=== PATIENT | male | born 1940 | race Caucasian/White ===

== ENCOUNTER 2017-02-17 14:02 | Emergency (ER) | payer MEDICARE ==
[2017-02-17 16:07] LABS: Bacteria/HPF Rare-Few HPF (None Seen); RBC/HPF GREATER THAN 50-TNTC HPF (0-3); Squamous Epithelial None Seen HPF (0-3); WBC/HPF None Seen HPF (0-3)
== END 2017-02-17 16:42 | disposition home or self-care (01) ==
LOC: SCSER 14:02
DX: R33.9 Retention of urine, unspecified (principal); R31.9 Hematuria, unspecified; Z79.899 Other long term (current) drug therapy
CPT/HCPCS: 51702; 81001

== ENCOUNTER 2017-05-08 12:41 | Outpatient (CLI) | payer MEDICARE ==
--- NOTE | 2017-05-08 13:25 | ULT ---
BILATERAL RENAL ULTRASOUND: Date: 05/08/17 INDICATION: Elevated renal function levels. Prior right nephrectomy. FINDINGS: There is mild prominence of the left renal pelvis. Slight heterogeneity of the renal parenchyma is no nspecific. The demonstrated renal length is 13.7 cm. Imaged urinary bladder is decompressed. IMPRESSION: 1. Mild prominence of the left renal pelvis without overt hydronephrosis. 2. Mild nonspecific heterogeneity of the left renal parenchyma. 3. Compensatory hypertrophy of the left kidney, status post right nephrectomy. POS: KEVON
== END 2017-05-08 12:42 | disposition home or self-care (01) ==
LOC: RAD 12:41
PROVIDERS: ATTEND Internal Medicine Hematology & Oncology
DX: C64.1 Malignant neoplasm of right kidney, except renal pelvis (principal); Z85.528 Personal history of other malignant neoplasm of kidney; N28.81 Hypertrophy of kidney; Z90.5 Acquired absence of kidney
CPT/HCPCS: 76775; 80053; 82248; 83615; 84100; 84550

== ENCOUNTER 2017-05-09 11:55 | Inpatient (IN) | payer MEDICARE ==
[2017-05-09 12:42] VITALS: BMI 21.9
[2017-05-09 13:28] LABS: #Lymphocytes 0.5 thou/uL (1.20-3.40); #Monocytes 0.1 thou/uL (0.11-0.59); %Basophils 0.1 % (0.0-1.0); %Eosinophils 0.1 % (0.0-10.0); %Lymphocytes 4.9 % (21.0-51.0); %Monocytes 0.9 % (0.0-10.0); Hemoglobin 8.9 g/dL (14.0-18.0); Mean Corpuscular HGB CONC 32.3 g/dL (32.0-36.0); Mean Corpuscular Hemoglobin 29.3 pg (27.0-31.0); Mean Corpuscular Volume 90.6 fl (80.0-94.0); Mean Platelet Volume 7.9 fL (7.4-10.4); Platelet Count 458 thou/uL (130-400); RBC Distribution Width 13.5 % (11.5-14.5); Red Blood Cell (RBC) Count 3.05 mill/uL (4.70-6.10); White Blood Cell (WBC) Count 9.5 thou/uL (4.8-10.8)
[2017-05-09 13:38] LABS: ALT (SGPT) 11 U/L (8-55); AST (SGOT) 12 U/L (5-34); Albumin 2.9 g/dL (3.4-4.8); Alkaline Phosphatase 91 U/L (40-150); Anion Gap 23 mmol/L (10-20); BUN (Urea Nitrogen) 125 mg/dL (8.4-25.7); Bilirubin, Total 0.3 mg/dL (0.2-1.2); Calc. Creatinine Clearance 6 mL/min (70-130); Calcium 9.3 mg/dL (7.8-10.44); Carbon Dioxide 19 mmol/L (23-31); Chloride 98 mmol/L (98-107); Estimated GFR-MDRD 4; Globulin 3.3 g/dL (2.4-3.5); Glucose 202 mg/dL (83-110); Potassium 5.9 mmol/L (3.5-5.1); Protein, Total 6.2 g/dL (5.8-8.1); Sodium 134 mmol/L (136-145)
[2017-05-09] MEDS ORDERED: FLU VACC TS2017-18 (>65YR) 0.5 ML SYRINGE IM ONE (13:45)
--- NOTE | 2017-05-09 14:13 | HP ---
PRIMARY CARE PROVIDER: Dr. Tello, direct admitted by Dr. Contreras Castillo. HISTORY OF PRESENT ILLNESS: Patient with profound listlessness and fatigue for the past several week s to 2 months, on Opdivo treatment for recurrent renal cell CA, found to have a creatinine of 12 yest erday. He was admitted to the hospital. He continues to make urine. There is no blood in his urine . No pain on urination. PAST MEDICAL HISTORY: Right nephrectomy for renal cell CA 16 years ago, recurred about 2 years ago i n his liver. He had extra additional chemotherapy for 3 months that did not work, he was changed to immunotherapy with Opdivo and has been on that for over a year and a half. He has a history of pepti c ulcer disease diagnosed 2-3 months ago at the [facility]. He has a history of gout, hypothyroidism, past medical history of hypertension which has apparently resolved, history of dyslipidemia. PAST SURGICAL HISTORY: In addition, he has had a prostate surgery removal 2-3 months ago that involv ed 3 separate procedures, but was apparently not a radical prostatectomy. CURRENT MEDICATIONS: Opdivo IV on a regular basis, allopurinol 300 mg a day, potassium 8 mEq a day, Lasix 40 mg a day, doxazosin 4 mg a day, levothyroxine 50 mcg a day, omeprazole 40 mg a day. ALLERGIES: None. FAMILY HISTORY: He has a brother with hypertension and heart disease. Mother had a stroke. Father had coronary artery disease, CHF. SOCIAL HISTORY: He is , at bedside. They both agree he is not to be resuscitated. No t obacco, no alcohol. REVIEW OF SYSTEMS: General: No fever, sweats or chills. No true dizziness, no fainting. Eyes: No double vision, blurred vision, flashing lights. ENT: No ear pain or drainage. No nasal bleeding o r trouble swallowing. Cardiac: No chest pain, orthopnea or paroxysmal nocturnal dyspnea. Respirato ry: He has a dry cough at times. No asthma or wheezing. Gastrointestinal: He has occasional diarr hea, no blood in his stools. No melena. No constipation, no abdominal pain, nausea or vomiting. Ge nitourinary: He still makes urine without difficulty. He has no blood in his urine. Musculoskeleta l: No pain or swelling in his arms or legs. Neurologic: No strokes, seizures or focal weakness. P sychiatric: No anxiety or depression. Skin: Bruises easily on his arms. Heme/Lymph: No tender or swollen lymph nodes in axilla, inguinal, or cervical area. PHYSICAL EXAMINATION: GENERAL: He is an alert, pleasant, cooperative gentleman. VITAL SIGNS: His pulse was 46, respirations 18, O2 sat 94, temperature 98, blood pressure 101/55. HEENT: Pupils equal, round, and reactive to light. Extraocular movements are intact. Sclerae white . Tympanic membranes are clear. Nose is clear. Oral mucous membranes are wet. NECK: Supple, without jugular venous distention, adenopathy or thyromegaly. CHEST: Clear to auscultation and percussion. HEART: Had a regular rate and rhythm. First and second heart sounds are clear. There are no murmur s or gallops. Pulse was slow in the 50s range. ABDOMEN: Soft, bowel sounds are normal. There is no palpable hepatosplenomegaly, mass. Bowel sound s are present. There are no bruits. EXTREMITIES: Reveal no cyanosis, clubbing or edema. PULSES: Carotid, radial, femoral, and dorsalis pedis pulses intact. SKIN: Warm and dry without bruises or rash. HEME/LYMPH: Reveal no tender or swollen lymph nodes in axilla, inguinal, or cervical region. NEUROLOGICAL: Cranial nerves II through XII are intact. Deep tendon reflexes symmetric. LABORATORY STUDIES: There are no presented studies. ADMITTING DIAGNOSES: 1. Acute renal failure with a creatinine of 12. 2. Metastatic renal cell carcinoma on Opdivo therapy. 3. Hypothyroidism. 4. Recent history of peptic ulcer disease. 5. Hypertension. 6. Bradycardia. 7. Dyslipidemia. PLAN: 1. Chest x-ray, EKG, CBC and comp metabolic profile have been ordered and will be reviewed when avai lable. 2. High dose oral steroids, 60 mg prednisone twice a day. 3. Selected home medicines. Hold allopurinol, Lasix, and potassium at this time. 4. Dr. Hicks has been called for Nephrology consultation.
[2017-05-09] MEDS: Sodium Chloride 0.9% 1,000 ML IV SCH ×2 (14:45→23:44)
--- NOTE | 2017-05-09 15:14 | RAD ---
TWO VIEWS CHEST: Date: 05-09-17 Provided Clinical History: Metastatic cancer. FINDINGS: No comparisons. Cardiac and mediastinal silhouette is within normal limits. Atherosclerosis involves the thoracic aorta. No focal consolidation, pleural fluid, or pneumothorax apparent. Degenerative dis c changes are seen involving the thoracic spine. IMPRESSION: No evidence for an acute cardiopulmonary process. POS: PAM
[2017-05-09 15:21] LABS: Bilirubin Negative (Negative); Blood, Urine Small (Negative); Clarity CLOUDY (Clear); Glucose, Urine (Dipstick) Negative (Negative); Leukocyte Large (Negative); Nitrite Negative (Negative); Protein, Urine (Dipstick) 30 mg/dL (Neg-Trace); Specific Gravity, Urine 1.019 (1.002-1.036); Urobilinogen 0.2 mg/dL (0.2-1.0); pH, Urine 5.5 (5.0-9.0)
[2017-05-09 15:23] LABS: Bacteria/HPF 4+ HPF (None Seen); RBC/HPF 0-3 HPF (0-3); Squamous Epithelial 0-3 HPF (0-3)
[2017-05-09 15:25] LABS: Pathc Cast-AUWi Flag 9.62 (0-2.49)
[2017-05-09 15:35] LABS: Hyaline Casts/LPF 0-3 HYALINE CAST LPF (0-3 Hyaline); Other Casts/LPF None Seen LPF (0-3 Hyaline)
[2017-05-09 15:39] LABS: Creatinine, Urine 80.43 mg/dL (63-166)
[2017-05-09] MEDS: predniSONE 20 MG TAB PO SCH (20:43)
[2017-05-09] MEDS: Doxazosin Mesylate 4 MG TAB PO SCH (20:44)
--- NOTE | 2017-05-09 22:36 | CON ---
Date of consultation: 05/09/2017 HISTORY OF PRESENT ILLNESS: Mr. Hinds is a 77-year-old white male who was admitted for an acute ki dney injury. His initial creatinine was noted around 13 mg%. We are now being consulted for his acu te kidney injury. Please note the only nephrotoxic drugs that may be playing a factor with this marielle ent is he was on Opdivo IV every 2 weeks for the last several months. Please note that at home he wa s also on a diuretic. We are being consulted for his acute kidney injury. REVIEW OF SYSTEMS: No chest pain, decreased appetite, decreased energy level. No nausea, no vomitin g, no gross hematuria, no dysuria, no urinary frequency. No diarrhea. No hematochezia, no melena, n o hematemesis, no headache, no new skin rash, no joint pains, no headache, no diplopia, no sore throa t, no earache, no shortness of breath, no fever or chills. HOME MEDICATIONS: Included Opdivo IV q.2 weeks times several months, allopurinol 300 mg once a day, KCl 8 mEq once a day, Lasix 40 mg daily, doxazosin 4 mg once a day, levothyroxine 50 mcg q. day, ome prazole 40 mg tab once daily. PAST MEDICAL HISTORY: 1. Renal cancer - first diagnosed 16 years ago. 2. Metastatic renal cancer - - currently on IV chemotherapy. 3. He has a history of GERD. 4. Hypothyroidism. PAST SURGICAL HISTORY: Includes 1. Prostate surgery, status post ? prostate biopsy. 2. Status post colonoscopy. 3. Status post right nephrectomy, status post liver biopsy. SOCIAL HISTORY: The patient lives in [place], lives with his , originally from [facility], 2 children. No history of smoking. No alcohol intake. 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 Education, high school. Status post blood transfusion. No IV drug abuse. ALLERGIES: None. TRAUMA: None. IMMUNIZATIONS: Not up to date. HOSPITALIZATIONS: Please see past medical history. FAMILY HISTORY: No family history of ESRD. PHYSICAL EXAMINATION: VITAL SIGNS: Blood pressure is 101/55, heart rate 46, respiratory rate 18, temperature 98, pulse ox 94%. GENERAL: Awake, alert, supine, comfortable, not in distress. SKIN: Decreased turgor. HEENT: He has pinkish, slightly pale conjunctivae, anicteric sclerae. NECK: No neck mass, no carotid bruits, no JVD. CHEST: No deformities. LUNGS: Clear breath sounds. No wheezing, no crackles heard. HEART: Normal sinus rhythm. No murmur, no gallops, no rubs. ABDOMEN: Globular, soft, nontender, no masses. EXTREMITIES: No edema, no deformities. NEUROLOGIC: Awake, oriented to 3 spheres. Moving all extremities. No tremors, no asterixis, no latha lidya. LABORATORY DATA AND X-RAY FINDINGS: 1. Laboratories of 05/09/2017, chest x-ray - no CHF, no infiltrates. 2. Sodium 134, potassium 5.9, chloride 98, carbon dioxide 19, BUN 125, creatinine 12.13, glucose 202 , calcium 9.3, AST 12, ALT 11, albumin 2.9. 3. White count 9.5, hemoglobin 8.9. 4. Urinalysis, specific gravity 1.019, protein is 30, rbc's 0-3, wbc's greater than 50, urine bacter ia 4+, urine leukocyte esterase large. No white cell casts, no red cell casts. 5. Renal ultrasound reported to show no evidence of hydronephrosis, it is slightly enlarged. ASSESSMENT AND PLAN: 1. Acute kidney injury - consider hemodynamically mediated renal dysfunction - prerenal azotemia - e mpiric volume repletion. I have increased normal saline from 100 mL per hour to 125 mL per hour. Th e other possibilities he may have an immune-mediated nephritis related to the Opdivo. The only way w e can confirm this is a renal biopsy. However, I am hesitant to proceed with a renal biopsy with dre eone with a solitary kidney. The urinalysis does not suggest an interstitial nephritis and/or glomer ulonephritis from his medication since I look at it as relatively benign. He does have white cells, but he does have bacteria and may suggest he may have UTI. If he is asymptomatic with a UTI, I will simply observe this. The next 24 hours will tell us if he is simply has a hemodynamically mediated r enal dysfunction, if it will improve his volume repletion. I did tell the patient that if needed, we may need to consider dialytic intervention. They are aware about this. 2. Renal cancer with mets - the patient is status post nephrectomy. Being managed by oncologist for his metastatic renal cancer. According to me, it has relatively been stable. 3. Continue current management. No changes will be made with his medication at the present time. I have ordered urine chemistries with this patient. We will recheck a base met CBC in the a.m.
[2017-05-10 05:43] LABS: #Lymphocytes 0.4 thou/uL (1.20-3.40); #Monocytes 0.2 thou/uL (0.11-0.59); #Neutrophils 11.6 thou/uL (1.40-6.50); %Eosinophils 0.1 % (0.0-10.0); %Lymphocytes 3.5 % (21.0-51.0); %Monocytes 1.5 % (0.0-10.0); %Neutrophils 94.8 % (42.0-75.0); Hemoglobin 8.7 g/dL (14.0-18.0); Mean Corpuscular HGB CONC 31.6 g/dL (32.0-36.0); Mean Corpuscular Hemoglobin 28.6 pg (27.0-31.0); Mean Corpuscular Volume 90.3 fl (80.0-94.0); Mean Platelet Volume 7.8 fL (7.4-10.4); Platelet Count 401 thou/uL (130-400); RBC Distribution Width 13.6 % (11.5-14.5); Red Blood Cell (RBC) Count 3.03 mill/uL (4.70-6.10); White Blood Cell (WBC) Count 12.2 thou/uL (4.8-10.8)
[2017-05-10] MEDS ORDERED: Levothyroxine Sodium 125 MCG TAB PO SCH (06:00)
[2017-05-10 06:01] LABS: Anion Gap 21 mmol/L (10-20); BUN (Urea Nitrogen) 119 mg/dL (8.4-25.7); Calc. Creatinine Clearance 6 mL/min (70-130); Calcium 8.6 mg/dL (7.8-10.44); Carbon Dioxide 20 mmol/L (23-31); Chloride 102 mmol/L (98-107); Estimated GFR-MDRD 5; Glucose 123 mg/dL (83-110); Potassium 4.5 mmol/L (3.5-5.1); Sodium 138 mmol/L (136-145)
--- NOTE | 2017-05-10 07:33 | EKG ---
Test Reason : Blood Pressure : / mmHG Vent. Rate : 054 BPM Atrial Rate : 054 BPM P-R Int : 190 ms QRS Dur : 104 ms QT Int : 450 ms P-R-T Axes : 080 -05 073 degrees QTc Int : 426 ms Sinus bradycardia Cannot rule out Anterior infarct , age undetermined Nonspecific ST-T changes Abnormal ECG When compared with ECG of 16-MAR-2012 23:18, Minimal criteria for Anterior infarct are now Present Confirmed by DR. Beth SOLER ([id number]) on 05/10/2017 7:33:25 AM Referred By: CAMI Confirmed By:DR. Beth SOLER
[2017-05-10] MEDS: Levothyroxine Sodium 50 MCG TAB PO SCH (07:36)
--- NOTE | 2017-05-10 08:14 | PRG ---
DATE OF SERVICE: 05/10/2017 SUBJECTIVE: Mr. Hinds is a 77-year-old white male with known history of metastatic renal cancer, o n chemotherapy - Opdivo. He was admitted for his acute kidney injury. We were currently doing IV hy dration and hope that he will have some improvement with the renal function. In addition, he has bee n started by his oncologist on prednisone at 60 mg p.o. b.i.d. for the possibility that this may be a n acute nephritis secondary to Opdivo. Currently, he is asymptomatic. He denies any chest pain, no shortness of breath. The patient contin ues to diurese. He is tolerating the IV fluid. He was noted to be mildly hyperkalemic yesterday and Kayexalate was given which significantly improved the potassium. OBJECTIVE: VITAL SIGNS: Blood pressure is 130/58, heart rate 56, respiratory rate 12, temperature 97.4, pulse o x 96%. GENERAL: Noted to be awake, supine, comfortable, not in distress. SKIN: Adequate turgor. HEENT: Slightly pale conjunctivae, anicteric sclerae. NECK: No neck mass, no carotid bruits, no JVD. CHEST: No deformities. LUNGS: Decreased breath sounds. HEART: Normal sinus rhythm. No murmur, no gallops, no rubs. ABDOMEN: Globular, soft, nontender, no masses. EXTREMITIES: No edema or deformities. MEDICATIONS: Medications of 05/10/2017 was reviewed. LABORATORY DATA: Laboratories of 05/10/2017; sodium 128, potassium 4.5, chloride 102, carbon dioxide 20, BUN 119, creatinine 11.08, glucose 123, calcium 8.6. White count 12.2, hemoglobin 8.7, and tonia tocrit 27.3. Urine sodium 29, urine creatinine 80.43. ASSESSMENT AND PLAN: 1. Acute kidney injury - this could be secondary from nephritis from Opdivo versus a simple hemodyna mically mediated renal dysfunction. Having said this, he is being treated for possible nephritis - c urrently on prednisone 60 mg p.o. b.i.d. In addition, he is getting IV hydration of normal saline at 125 mL per hour. I will continue this conservative management. Please note that the renal biopsy w ith this patient is a relative contraindication due to the fact that the patient has a solitary kidne y. Renal ultrasound did not show any obstruction. The urine sediment was equivocal. There is no ov ert acute tubular necrosis. There is no overt glomerulonephritis in the absence of hematuria or red cell casts. He does have some white cells. I doubt he has a systemic acute interstitial nephritis a nd the possibility of clinical manifestations. For the moment, continue to have conservative managem ent and there is no indication for any dialytic intervention. We will do dialysis that has been ment ioned to the patient. He voices that and he would like to avoid it if possible. No new changes with this management. Continue supportive care. 2. Metastatic renal cancer. Supportive care. Hematology/Oncology following. 3. We will check base met and CBC in a.m. 4. Hyperkalemia - resolved with sodium Kayexalate.
[2017-05-10] MEDS ORDERED: Non-Formulary Item 1 EACH (Omeprazole [Omeprazole] 40 MG) PO SCH (09:00)
[2017-05-10] MEDS: predniSONE 20 MG TAB PO SCH ×2 (09:42→21:39)
[2017-05-10] MEDS: Sodium Chloride 0.9% 1,000 ML IV SCH ×2 (09:44→18:11)
--- NOTE | 2017-05-10 12:16 | PDOC.PN ---
- Subjective Encounter Start Date: 05/10/17 Encounter Start Time: 12:14 Subjective: no dysuria, hematria, good UO - Objective Resuscitation Status: Resuscitation Status DNR:Do Not Resuscitate MAR Reviewed: Yes Vital Signs & Weight: Vital Signs (12 hours) Temp Pulse Resp BP Pulse Ox 05/10/17 08:10 97.2 F L 50 L 16 98 05/10/17 07:20 97.2 F L 50 L 16 121/60 98 05/10/17 04:00 97.4 F L 56 L 12 130/58 L 96 Weight Weight 175 lb I&O: 05/09/17 05/10/17 05/11/17 06:59 06:59 06:59 Intake Total 1488 Output Total 260 300 Balance 1228 -300 Result Diagrams: 05/10/17 05:14 05/10/17 05:14 Phys Exam - Physical Examination Constitutional: NAD Neck: no JVD Respiratory: clear to auscultation bilateral Cardiovascular: RRR, no significant murmur Gastrointestinal: soft, non-tender, positive bowel sounds Musculoskeletal: no edema Dx/Plan (1) Acute renal failure Status: Acute Qualifiers: Acute renal failure type: unspecified Qualified Code(s): N17.9 - Acute kidney failure, unspecified (2) Metastatic renal cell carcinoma to liver Code(s): C78.7 - SECONDARY MALIG NEOPLASM OF LIVER AND INTRAHEPATIC BILE DUCT; C64.9 - MALIGNANT NEOPLASM OF UNSP KIDNEY, EXCEPT RENAL PELVIS Status: Chronic (3) HTN (hypertension) Code(s): I10 - ESSENTIAL (PRIMARY) HYPERTENSION Status: Chronic Qualifiers: Hypertension type: essential hypertension Qualified Code(s): I10 - Essential (primary) hypertension (4) Hypothyroid Code(s): E03.9 - HYPOTHYROIDISM, UNSPECIFIED Status: Chronic - Plan cont po steroids, cont iv fluids, serial BMP * .
[2017-05-10] MEDS: Doxazosin Mesylate 4 MG TAB PO SCH (21:39)
--- NOTE | 2017-05-11 00:06 | CON ---
DATE OF CONSULTATION: 05/09/2017 REASON FOR CONSULTATION: Metastatic renal cell carcinoma and acute renal failure. HISTORY OF PRESENT ILLNESS: The patient is a 77-year-old man with a known history of metastatic jonny l cell carcinoma, who underwent right nephrectomy in 2002 for renal cell carcinoma confined to the ki dney. In March 2015, he was found to have multiple small pulmonary nodules and a very large mass involving the inferior portion of the liver. A biopsy confirmed metastatic kidney carcinoma. He was placed on Sutent initially, but progressed in 08/2015. Immunotherapy consisting of Opdivo was initi ated in 08/2015 and he has had stable disease for the past 18 months. His course has been complicate d by intermittent gouty arthritis for which he is maintained on allopurinol with good success. He al so had an episode of melena in December 2015 and 2016 and an upper gastrointestinal endoscopy did reveal benign gastric ulcers, which have healed. He developed an episode of urinary retention i n 02/2017 and did undergo a palliative transurethral laser resection of the prostate performed by Dr. Gilbert at the [facility]. He has done well since, until the last few weeks w hen he developed progressive fatigue. A creatinine was 1.6 in the office 2 weeks prior to admission. On the day of admission, he presented to the office for his typical Opdivo treatment. Because he h ad progressive fatigue, additional chemistries were obtained and creatinine surprisingly was 12. The re was no hyperkalemia or acidosis of significance. He is urinating normally. My concern was immuno therapy related nephritis as there appeared to be no other significant explanation. Oral steroids we re initiated and immediate hospitalization was recommended, this was late in the afternoon and, there fore, the patient preferred to return the following morning for admission. ALLERGIES: None. MEDICATIONS: Allopurinol 300 daily, doxazosin 4 mg daily, Lasix 40 daily as needed, and levothyroxin e 125 mcg daily. MEDICAL ILLNESSES: There is a history of hypertension, osteoarthritis, and gouty arthritis. There i s no history of known coronary artery disease. SURGERY: The patient underwent a right nephrectomy in 2002, arthroscopic knee surgery in 2009, catar act surgery 2012, and prostate surgery for benign obstruction in 02/2017. FAMILY HISTORY: The patient's father had colon cancer. There is no other significant family history . SOCIAL HISTORY: The patient is and has 2 children. He lives with his . He is a nonsmok er and does not drink alcohol. 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 REVIEW OF SYSTEMS: Except as mentioned in the history of present illness, he denies significant card iopulmonary, GI, , musculoskeletal, or neurological complaints. PHYSICAL EXAMINATION: VITAL SIGNS: Weight 183 pounds, height 73 inches. Pulse 63 and regular, blood pressure 111/58. GENERAL: The patient is a well-developed and well-nourished man in no acute distress. He is alert, oriented, and cooperative. HEENT: The extraocular movements are intact and the pupils are equal, round, and reactive to light. NECK: Supple. LUNGS: Clear. CARDIOVASCULAR: Regular rate and rhythm without murmur, rub, gallop or click. ABDOMEN: No tenderness, organomegaly, masses, bruits or ascites. EXTREMITIES: No clubbing, cyanosis or edema. SKIN: Normal. LYMPH: No adenopathy. MUSCULOSKELETAL: No active arthritis. NEUROLOGIC: No focal findings and the cranial nerves II-XII are grossly intact. LABORATORY: Chemistries on admission show sodium 134, potassium 5.9, chloride 98, carbon dioxide 19. The creatinine is 12.13 and BUN 125. A random blood sugar is 202. The calcium is 9.3 with uric ac id of 4.3. Liver function studies are normal. The albumin is 2.9. IMAGING: The patient underwent an ultrasound of the kidneys, which showed no evidence of obstruction . IMPRESSION: 1. Metastatic renal cell carcinoma, stable on immunotherapy consisting of Opdivo. 2. Acute renal failure; my primary concern is Opdivo related nephritis with possible contribution of volume depletion. RECOMMENDATIONS: I discussed the findings at length with the patient. He will have fluid administer ed and allopurinol and Opdivo will be held. Prednisone has been initiated the night prior to admissi on at a dose of 60 mg b.i.d. which is 1-2 mg/kg. Nephrology consultation will be obtained.
[2017-05-11] MEDS: Sodium Chloride 0.9% 1,000 ML IV SCH ×3 (01:30→19:44)
[2017-05-11 05:57] LABS: #Lymphocytes 0.4 thou/uL (1.20-3.40); #Monocytes 0.2 thou/uL (0.11-0.59); #Neutrophils 8.4 thou/uL (1.40-6.50); %Eosinophils 0.1 % (0.0-10.0); %Lymphocytes 4.1 % (21.0-51.0); %Monocytes 2.2 % (0.0-10.0); %Neutrophils 93.6 % (42.0-75.0); Hemoglobin 8.8 g/dL (14.0-18.0); Mean Corpuscular HGB CONC 31.8 g/dL (32.0-36.0); Mean Corpuscular Hemoglobin 28.7 pg (27.0-31.0); Mean Corpuscular Volume 90.3 fl (80.0-94.0); Mean Platelet Volume 8.3 fL (7.4-10.4); Platelet Count 390 thou/uL (130-400); RBC Distribution Width 13.6 % (11.5-14.5); Red Blood Cell (RBC) Count 3.07 mill/uL (4.70-6.10)
[2017-05-11 06:05] LABS: Anion Gap 18 mmol/L (10-20); BUN (Urea Nitrogen) 113 mg/dL (8.4-25.7); Calc. Creatinine Clearance 7 mL/min (70-130); Carbon Dioxide 21 mmol/L (23-31); Chloride 106 mmol/L (98-107); Estimated GFR-MDRD 5; Glucose 128 mg/dL (83-110); Potassium 4.3 mmol/L (3.5-5.1); Sodium 141 mmol/L (136-145)
[2017-05-11] MEDS: Levothyroxine Sodium 50 MCG TAB PO SCH (06:10)
[2017-05-11] MEDS: predniSONE 20 MG TAB PO SCH ×2 (08:07→22:24)
--- NOTE | 2017-05-11 10:13 | PRG ---
DATE OF SERVICE: 05/11/2017 SUBJECTIVE: Mr. Hinds is a 77-year-old white male who was seen for his acute kidney injury seconda ry to a presumed acute interstitial nephritis from his Opdivo. He has also component of prerenal azo temia. He has been started on steroids as well as IV hydration. This morning, he is feeling better. He denies any chest pain or shortness of breath. He was also initially noted to be mildly hyperkal emic and he responded well with p.o. Kayexalate. OBJECTIVE: VITAL SIGNS: Blood pressure is 118/66, heart rate 48, respiratory rate 16, temperature 97.3, pulse o x 97%. GENERAL: Awake, alert, supine, comfortable, not in distress. SKIN: Adequate turgor. HEENT: Pinkish conjunctivae, anicteric sclerae. NECK: No neck mass, no carotid bruits, no JVD. CHEST: No deformities. LUNGS: Clear breath sounds. No wheezing, no crackles. HEART: Normal sinus rhythm. No murmur, no gallops, no rubs. ABDOMEN: Globular, soft, nontender, no masses. EXTREMITIES: No edema, no deformities. MEDICATIONS: Of 05/11/2017 was reviewed. LABORATORY DATA: Of 05/11/2017, white count 9, hemoglobin 8.8, hematocrit 27.7. Sodium 141, potassi um 4.3, chloride 106, carbon dioxide 21, BUN 113, creatinine 9.68, glucose 128, calcium 8.0. ASSESSMENT AND PLAN: 1. Acute kidney injury - presumptive diagnosis of acute interstitial nephritis secondary to the Opdi vo with a possible component of prerenal azotemia. Continue gentle volume hydration. Please note, t he patient currently on prednisone 60 mg twice a day. In the next few days, consider decreasing the prednisone to 60 mg, 1 tab once a day. For the moment, continue current management. No indication f or any dialytic intervention. The patient is not clinically uremic. 2. Metastatic renal cancer, supportive care, oncologic following. 3. Mild hyperkalemia, resolved. Recheck base met and CBC in a.m.
--- NOTE | 2017-05-11 12:03 | PDOC.PN ---
- Subjective Encounter Start Date: 05/11/17 Encounter Start Time: 07:00 Pt seen for followup re: ISABELLA. Denies chest pain, shortness of breath, fevers or chills. - Objective Resuscitation Status: Resuscitation Status DNR:Do Not Resuscitate MAR Reviewed: Yes Vital Signs & Weight: Vital Signs (12 hours) Temp Pulse Resp BP Pulse Ox 05/11/17 08:00 97.3 F L 48 L 16 97 05/11/17 06:58 97.3 F L 48 L 16 118/66 97 05/11/17 03:41 97.4 F L 51 L 12 106/52 L 98 Weight Admit Weight 175 lb Weight 175 lb I&O: 05/10/17 05/11/17 05/12/17 06:59 06:59 06:59 Intake Total 1488 3970 Output Total 260 1250 Balance 1228 2720 Result Diagrams: 05/11/17 05:13 05/11/17 05:13 Phys Exam - Physical Examination Constitutional: NAD HEENT: moist MMs Neck: supple Respiratory: clear to auscultation bilateral Cardiovascular: RRR Gastrointestinal: soft, non-tender Musculoskeletal: pulses present Neurological: moves all 4 limbs Psychiatric: normal affect Skin: no rash Dx/Plan (1) Acute renal failure Status: Acute Qualifiers: Acute renal failure type: unspecified Qualified Code(s): N17.9 - Acute kidney failure, unspecified (2) HTN (hypertension) Code(s): I10 - ESSENTIAL (PRIMARY) HYPERTENSION Status: Chronic Qualifiers: Hypertension type: essential hypertension Qualified Code(s): I10 - Essential (primary) hypertension (3) Hypothyroid Code(s): E03.9 - HYPOTHYROIDISM, UNSPECIFIED Status: Chronic (4) Metastatic renal cell carcinoma to liver Code(s): C78.7 - SECONDARY MALIG NEOPLASM OF LIVER AND INTRAHEPATIC BILE DUCT; C64.9 - MALIGNANT NEOPLASM OF UNSP KIDNEY, EXCEPT RENAL PELVIS Status: Chronic - Plan out of bed/ambulate, DVT proph w/SCDs * . Creatinine improved to 9.68 today. Continue steroids. Monitor vital signs, titrate antihypertensives as needed. Continue synthroid. Review of Systems - Review of Systems Respiratory: negative: Cough, Dry, Shortness of Breath, Hemoptysis, SOB with Excertion, Pleuritic Pain, Sputum, Wheezing Cardiovascular: negative: chest pain, palpitations, orthopnea, paroxysmal nocturnal dyspnea, edema, light headedness - Medications/Allergies Allergies/Adverse Reactions: Allergies Allergy/AdvReac Type Severity Reaction Status Date / Time No Known Drug Allergies Allergy Verified 05/09/17 12:45 Medications: Current Medications Doxazosin Mesylate (Cardura) 4 mg PO HS [facility] Last Admin: 05/10/17 21:39 Dose: 4 mg Sodium Chloride (Normal Saline 0.9%) 1,000 mls @ 125 mls/hr IV .Q8H [facility] Last Admin: 05/11/17 11:05 Dose: 1,000 mls Levothyroxine Sodium (Synthroid) 50 mcg PO 0600 [facility] Last Admin: 05/11/17 06:10 Dose: 50 mcg Pantoprazole Sodium (Protonix) 40 mg PO DAILY [facility] Last Admin: 05/11/17 08:07 Dose: 40 mg Prednisone (Prednisone) 60 mg PO BID [facility] Last Admin: 05/11/17 08:07 Dose: 60 mg Sodium Chloride (Flush - Normal Saline) 10 ml IVF Q12HR [facility] Last Admin: 05/11/17 08:09 Dose: 10 ml Sodium Chloride (Flush - Normal Saline) 10 ml IVF PRN PRN PRN Reason: Saline Flush
[2017-05-11] MEDS: Doxazosin Mesylate 4 MG TAB PO SCH (22:24)
[2017-05-12 04:49] LABS: #Lymphocytes 0.4 thou/uL (1.20-3.40); #Monocytes 0.2 thou/uL (0.11-0.59); #Neutrophils 10.4 thou/uL (1.40-6.50); %Eosinophils 0.3 % (0.0-10.0); %Lymphocytes 3.5 % (21.0-51.0); %Monocytes 1.8 % (0.0-10.0); %Neutrophils 94.4 % (42.0-75.0); Hemoglobin 10.3 g/dL (14.0-18.0); Mean Corpuscular HGB CONC 31.7 g/dL (32.0-36.0); Mean Corpuscular Hemoglobin 28.8 pg (27.0-31.0); Mean Corpuscular Volume 90.7 fl (80.0-94.0); Platelet Count 411 thou/uL (130-400); RBC Distribution Width 13.6 % (11.5-14.5); Red Blood Cell (RBC) Count 3.58 mill/uL (4.70-6.10)
[2017-05-12 05:04] LABS: Anion Gap 17 mmol/L (10-20); BUN (Urea Nitrogen) 109 mg/dL (8.4-25.7); Calc. Creatinine Clearance 8 mL/min (70-130); Calcium 8.4 mg/dL (7.8-10.44); Carbon Dioxide 20 mmol/L (23-31); Chloride 106 mmol/L (98-107); Estimated GFR-MDRD 6; Glucose 129 mg/dL (83-110); Potassium 4.1 mmol/L (3.5-5.1); Sodium 139 mmol/L (136-145)
[2017-05-12] MEDS: Levothyroxine Sodium 50 MCG TAB PO SCH (05:34)
[2017-05-12] MEDS: predniSONE 20 MG TAB PO SCH ×2 (07:48→20:16)
[2017-05-12] MEDS: Sodium Chloride 0.9% 1,000 ML IV SCH ×2 (07:50→16:30)
--- NOTE | 2017-05-12 09:21 | PRG ---
DATE OF SERVICE: 05/12/2017 SERVICE: Renal Medicine. SUBJECTIVE: Mr. Hinds is a 77-year-old white male who was seen for acute kidney injury. The possi bility of nephritis from his Opdivo is being considered. He is also getting empiric volume repletion . He is slowly improving with the renal function. Please note, he was also empirically treated with prednisone 60 mg b.i.d. dosing. He is currently on normal saline. No new complaints today. No yareli st pain, no shortness of breath, no nausea, no vomiting, no diarrhea. OBJECTIVE: VITAL SIGNS: Blood pressure is 126/58, heart rate 51, respiratory rate 18, temperature 97.7, pulse o x 98%. GENERAL: Noted to be awake, alert, supine, comfortable, not in distress. SKIN: Adequate turgor. HEENT: He has pinkish conjunctivae, anicteric sclerae. NECK: No neck mass, no carotid bruits, no JVD. CHEST: No deformities. LUNGS: Clear breath sounds. HEART: Normal sinus rhythm. No murmur, no gallops, no rubs. ABDOMEN: Globular, soft, nontender, no masses. EXTREMITIES: No edema, no deformities. LABORATORY DATA: Of 05/12/2017, white count 11, hemoglobin 10.3, sodium 139, potassium 4.1, chloride 106, carbon dioxide 20, BUN is 109, creatinine 8.10, calcium is 8.4. ASSESSMENT AND PLAN: 1. Acute kidney injury - considering nephritis from the Opdivo treatment, currently on prednisone 60 mg b.i.d. Consider decreasing prednisone in a.m. to 60 mg tab once a day. Continue IV hydration on normal saline at 125 mL per hour. He is tolerating said hydration. Please note, there is a slight improvement in creatinine. Please note, also that creatinine peaked at 12, is now currently at 8. N o indication for any dialytic intervention. 2. Metastatic renal cancer, supportive care. Hematology following. 3. Anemia, slowly improving. Recheck base met and CBC in a.m.
--- NOTE | 2017-05-12 11:53 | PDOC.PN ---
- Subjective Encounter Start Date: 05/12/17 Encounter Start Time: 07:00 Pt seen for followup re: ISABELLA. No complaints today. - Objective Resuscitation Status: Resuscitation Status DNR:Do Not Resuscitate Vital Signs & Weight: Vital Signs (12 hours) Temp Pulse Resp BP Pulse Ox 05/12/17 11:00 97.7 F 46 L 19 124/66 94 L 05/12/17 07:57 97.7 F 51 L 18 05/12/17 07:31 97.7 F 51 L 18 126/58 L 98 Weight Admit Weight 175 lb Weight 175 lb I&O: 05/11/17 05/12/17 05/13/17 06:59 06:59 06:59 Intake Total 3970 Output Total 1250 Balance 2720 Result Diagrams: 05/12/17 04:26 05/12/17 04:26 Phys Exam - Physical Examination Constitutional: NAD HEENT: moist MMs Neck: supple Respiratory: clear to auscultation bilateral Cardiovascular: RRR Gastrointestinal: soft Neurological: moves all 4 limbs Psychiatric: normal affect Skin: no rash Dx/Plan (1) Acute renal failure Status: Acute Qualifiers: Acute renal failure type: unspecified Qualified Code(s): N17.9 - Acute kidney failure, unspecified (2) HTN (hypertension) Code(s): I10 - ESSENTIAL (PRIMARY) HYPERTENSION Status: Chronic Qualifiers: Hypertension type: essential hypertension Qualified Code(s): I10 - Essential (primary) hypertension (3) Hypothyroid Code(s): E03.9 - HYPOTHYROIDISM, UNSPECIFIED Status: Chronic (4) Metastatic renal cell carcinoma to liver Code(s): C78.7 - SECONDARY MALIG NEOPLASM OF LIVER AND INTRAHEPATIC BILE DUCT; C64.9 - MALIGNANT NEOPLASM OF UNSP KIDNEY, EXCEPT RENAL PELVIS Status: Chronic - Plan PT/OT, out of bed/ambulate, DVT proph w/SCDs * . Creatinine improving. Continue steroids. nephrology following. Likely home early next week. Review of Systems - Review of Systems Respiratory: negative: Cough, Dry, Shortness of Breath, Hemoptysis, SOB with Excertion, Pleuritic Pain, Sputum, Wheezing Cardiovascular: negative: chest pain, palpitations, orthopnea, paroxysmal nocturnal dyspnea, edema, light headedness Gastrointestinal: negative: Nausea, Vomiting, Abdominal Pain, Diarrhea, Constipation, Melena, Hematochezia - Medications/Allergies Allergies/Adverse Reactions: Allergies Allergy/AdvReac Type Severity Reaction Status Date / Time No Known Drug Allergies Allergy Verified 05/09/17 12:45 Medications: Current Medications Doxazosin Mesylate (Cardura) 4 mg PO HS [facility] Last Admin: 05/11/17 22:24 Dose: 4 mg Sodium Chloride (Normal Saline 0.9%) 1,000 mls @ 125 mls/hr IV .Q8H [facility] Last Admin: 05/12/17 07:50 Dose: 1,000 mls Levothyroxine Sodium (Synthroid) 50 mcg PO 0600 [facility] Last Admin: 05/12/17 05:34 Dose: 50 mcg Pantoprazole Sodium (Protonix) 40 mg PO DAILY [facility] Last Admin: 05/12/17 07:49 Dose: 40 mg Prednisone (Prednisone) 60 mg PO BID [facility] Last Admin: 05/12/17 07:48 Dose: 60 mg Sodium Chloride (Flush - Normal Saline) 10 ml IVF Q12HR [facility] Last Admin: 05/12/17 09:00 Dose: Not Given Sodium Chloride (Flush - Normal Saline) 10 ml IVF PRN PRN PRN Reason: Saline Flush
[2017-05-12] MEDS: Doxazosin Mesylate 4 MG TAB PO SCH (20:16)
[2017-05-13] MEDS: Sodium Chloride 0.9% 1,000 ML IV SCH ×3 (00:20→17:19)
[2017-05-13] MEDS: Levothyroxine Sodium 50 MCG TAB PO SCH (06:07)
[2017-05-13 06:32] LABS: #Lymphocytes 0.5 thou/uL (1.20-3.40); #Monocytes 0.2 thou/uL (0.11-0.59); #Neutrophils 8.9 thou/uL (1.40-6.50); %Eosinophils 0.3 % (0.0-10.0); %Lymphocytes 4.8 % (21.0-51.0); %Monocytes 2.4 % (0.0-10.0); %Neutrophils 92.5 % (42.0-75.0); Hemoglobin 8.5 g/dL (14.0-18.0); Mean Corpuscular HGB CONC 31.5 g/dL (32.0-36.0); Mean Corpuscular Hemoglobin 28.6 pg (27.0-31.0); Mean Corpuscular Volume 91.1 fl (80.0-94.0); Mean Platelet Volume 8.1 fL (7.4-10.4); Platelet Count 330 thou/uL (130-400); RBC Distribution Width 13.7 % (11.5-14.5); Red Blood Cell (RBC) Count 2.98 mill/uL (4.70-6.10); White Blood Cell (WBC) Count 9.6 thou/uL (4.8-10.8)
[2017-05-13 06:41] LABS: Anion Gap 13 mmol/L (10-20); BUN (Urea Nitrogen) 96 mg/dL (8.4-25.7); Calc. Creatinine Clearance 11 mL/min (70-130); Calcium 8.1 mg/dL (7.8-10.44); Carbon Dioxide 20 mmol/L (23-31); Chloride 112 mmol/L (98-107); Estimated GFR-MDRD 9; Glucose 129 mg/dL (83-110); Sodium 141 mmol/L (136-145)
[2017-05-13] MEDS: predniSONE 20 MG TAB PO SCH (08:35)
--- NOTE | 2017-05-13 10:55 | PRG ---
DATE OF SERVICE: 05/13/2017 SERVICE: Renal Medicine. SUBJECTIVE: Mr. Hinds is a 77-year-old white male who was seen by the renal service for his acute kidney injury. The presumptive diagnosis is either this could be an acute interstitial nephritis robbie martha simple volume depletion. He has been given prednisone 60 mg b.i.d. for the last 3-4 days. In ad dition, he was empirically started on normal saline. Over the last several days, renal function has been slowly improving. He voices no new complaints. He voices no chest pain or shortness of breath. PHYSICAL EXAMINATION: VITAL SIGNS: Blood pressure is 142/66, heart rate 56, respiratory rate 16, temperature 97.8, pulse o x 98%. GENERAL: Noted to be awake, alert, supine, comfortable, not in distress. SKIN: Adequate turgor. HEENT: He has pinkish conjunctivae, anicteric sclerae. NECK: No neck mass, no carotid bruits, no JVD. CHEST: No deformities. LUNGS: Clear breath sounds. No wheezing or crackles. HEART: Normal sinus rhythm. No murmur, no gallops or rubs. ABDOMEN: Globular, soft, nontender, no masses. EXTREMITIES: No edema. MEDICATIONS: Of 05/13/2017 was reviewed. LABORATORY DATA: Of 05/13/2017, white count 9.6, hemoglobin 8.5, hematocrit 27.1, platelet count 230 ,000. Sodium 141, potassium 4, chloride 102, carbon dioxide 20, BUN 96, creatinine 6.2, GFR 9 mL per minute, glucose 129, calcium 8.1. ASSESSMENT AND PLAN: 1. Acute kidney injury - secondary to presumptive acute interstitial nephritis from Opdivo versus si mple volume depletion. Continue current management. Continue IV hydration. The patient has been on prednisone at 60 mg b.i.d. for the last 3-4 days. My plan is to decrease prednisone to 60 mg tab da tory. Continue supportive care. As previously mentioned, there is no indication for any dialytic int ervention. Renal function is slowly improving. We will attempt to normalize renal function if possi ble. The issue is the long-term plan whether this patient is to be re-challenged with Opdivo? This will be decided by his oncologist. 2. Metastatic renal cancer - supportive care. Recheck basic met and CBC in a.m., decrease prednisone to 60 mg tab daily.
--- NOTE | 2017-05-13 12:53 | PDOC.PN ---
- Subjective Encounter Start Date: 05/13/17 Encounter Start Time: 07:00 Pt seen for followup re: ISABELLA. Denies chest pain, shortness of breath. - Objective Resuscitation Status: Resuscitation Status DNR:Do Not Resuscitate Vital Signs & Weight: Vital Signs (12 hours) Temp Pulse Resp BP Pulse Ox 05/13/17 11:06 97.7 F 56 L 16 117/57 L 98 05/13/17 08:00 97.8 F 56 L 16 05/13/17 07:05 97.8 F 56 L 16 142/66 H 98 Weight Admit Weight 175 lb Weight 175 lb I&O: 05/12/17 05/13/17 05/14/17 06:59 06:59 06:59 Intake Total 1980 2220 Output Total 700 450 Balance 1280 1770 Result Diagrams: 05/13/17 05:51 05/13/17 05:51 Phys Exam - Physical Examination Constitutional: NAD HEENT: moist MMs Neck: supple Respiratory: clear to auscultation bilateral Cardiovascular: RRR Gastrointestinal: soft Neurological: moves all 4 limbs Psychiatric: normal affect Dx/Plan (1) Acute renal failure Status: Acute Qualifiers: Acute renal failure type: unspecified Qualified Code(s): N17.9 - Acute kidney failure, unspecified (2) HTN (hypertension) Code(s): I10 - ESSENTIAL (PRIMARY) HYPERTENSION Status: Chronic Qualifiers: Hypertension type: essential hypertension Qualified Code(s): I10 - Essential (primary) hypertension (3) Hypothyroid Code(s): E03.9 - HYPOTHYROIDISM, UNSPECIFIED Status: Chronic (4) Metastatic renal cell carcinoma to liver Code(s): C78.7 - SECONDARY MALIG NEOPLASM OF LIVER AND INTRAHEPATIC BILE DUCT; C64.9 - MALIGNANT NEOPLASM OF UNSP KIDNEY, EXCEPT RENAL PELVIS Status: Chronic - Plan * . Creatinine improving, 6.20 today. Continue to monitor renal function. Steroid dose changed to 60 mg PO daily. Review of Systems - Review of Systems Gastrointestinal: negative: Nausea, Vomiting, Abdominal Pain, Diarrhea, Constipation, Melena, Hematochezia Genitourinary: negative: Dysuria, Frequency, Incontinence, Hematuria, Retention - Medications/Allergies Allergies/Adverse Reactions: Allergies Allergy/AdvReac Type Severity Reaction Status Date / Time No Known Drug Allergies Allergy Verified 05/09/17 12:45 Medications: Current Medications Doxazosin Mesylate (Cardura) 4 mg PO HS [facility] Last Admin: 05/12/17 20:16 Dose: 4 mg Sodium Chloride (Normal Saline 0.9%) 1,000 mls @ 125 mls/hr IV .Q8H [facility] Last Admin: 05/13/17 08:35 Dose: 1,000 mls Levothyroxine Sodium (Synthroid) 50 mcg PO 0600 [facility] Last Admin: 05/13/17 06:07 Dose: 50 mcg Pantoprazole Sodium (Protonix) 40 mg PO DAILY [facility] Last Admin: 05/13/17 08:35 Dose: 40 mg Prednisone (Prednisone) 60 mg PO QAM-WM [facility] Sodium Chloride (Flush - Normal Saline) 10 ml IVF Q12HR [facility] Last Admin: 05/13/17 08:37 Dose: 10 ml Sodium Chloride (Flush - Normal Saline) 10 ml IVF PRN PRN PRN Reason: Saline Flush
[2017-05-13] MEDS: Doxazosin Mesylate 4 MG TAB PO SCH (22:00)
[2017-05-14 04:19] LABS: #Lymphocytes 0.5 thou/uL (1.20-3.40); #Monocytes 0.3 thou/uL (0.11-0.59); #Neutrophils 10.8 thou/uL (1.40-6.50); %Eosinophils 0.3 % (0.0-10.0); %Lymphocytes 4.5 % (21.0-51.0); %Monocytes 2.2 % (0.0-10.0); Hemoglobin 8.9 g/dL (14.0-18.0); Mean Corpuscular HGB CONC 31.7 g/dL (32.0-36.0); Mean Corpuscular Hemoglobin 28.8 pg (27.0-31.0); Mean Corpuscular Volume 90.9 fl (80.0-94.0); Mean Platelet Volume 8.2 fL (7.4-10.4); Platelet Count 306 thou/uL (130-400); RBC Distribution Width 13.9 % (11.5-14.5); Red Blood Cell (RBC) Count 3.07 mill/uL (4.70-6.10); White Blood Cell (WBC) Count 11.6 thou/uL (4.8-10.8)
[2017-05-14 04:32] LABS: Anion Gap 11 mmol/L (10-20); BUN (Urea Nitrogen) 87 mg/dL (8.4-25.7); Calc. Creatinine Clearance 14 mL/min (70-130); Carbon Dioxide 22 mmol/L (23-31); Chloride 113 mmol/L (98-107); Estimated GFR-MDRD 12; Glucose 119 mg/dL (83-110); Potassium 3.8 mmol/L (3.5-5.1); Sodium 142 mmol/L (136-145)
[2017-05-14] MEDS: Sodium Chloride 0.9% 1,000 ML IV SCH ×3 (05:50→20:27)
[2017-05-14] MEDS: Levothyroxine Sodium 50 MCG TAB PO SCH (05:50)
[2017-05-14] MEDS: predniSONE 20 MG TAB PO SCH (08:45)
--- NOTE | 2017-05-14 09:42 | PRG ---
DATE: 05/14/2017 SUBJECTIVE: Mr. Hinds is a 77-year-old white male who was seen for his acute kidney injury. Monica goncalves diagnosis is either acute interstitial nephritis from his Opdivo versus simple prerenal azotemia. He is getting steroids as well as IV hydration. I have decreased his prednisone from 60 mg b.i.d. t o 60 mg once a day. This morning, he voices no new complaints. No chest pain, no shortness of breat h. PHYSICAL EXAMINATION: VITAL SIGNS: Blood pressure is 136/61, heart rate 45, respiratory rate 20, temperature 97.7, pulse o x 96%. GENERAL: Noted to be awake, alert, supine, comfortable. SKIN: Adequate turgor. HEENT: Slightly pinkish conjunctivae, anicteric sclerae. NECK: No neck mass, no carotid bruits, no JVD. CHEST: No deformities. LUNGS: Clear breath sounds. No wheezing, no crackles. HEART: Normal sinus rhythm. No murmur, no gallops or rubs. ABDOMEN: Globular, soft, nontender, no masses. EXTREMITIES: No edema, no deformities. MEDICATIONS: Of 05/14/2017 reviewed. LABORATORY DATA: Of 05/14/2007. White count 11.6, hemoglobin 8.9, sodium 142, potassium 2.8, chlori de 103, carbon dioxide 22, BUN 87, creatinine 4.77, glucose 119. ASSESSMENT AND PLAN: 1. Acute kidney injury - acute interstitial nephritis secondary to Opdivo versus prerenal azotemia. Improving renal function. Continue IV hydration, continue current prednisone dose. He is now on a tapered dose of 60 mg tab daily. To continue current management. No indication for any dialytic int ervention. Renal function is much improved with a creatinine of 4.77 which was noted to have peaked at 12.13. Tolerating said volume, NSAID, prednisone. 2. Metastatic renal cancer, supportive care, Oncology following.
--- NOTE | 2017-05-14 12:31 | PDOC.PN ---
- Subjective Encounter Start Date: 05/14/17 Encounter Start Time: 07:00 Pt seen for followup re: ISABELLA. No complaints today. - Objective Resuscitation Status: Resuscitation Status DNR:Do Not Resuscitate MAR Reviewed: Yes Vital Signs & Weight: Vital Signs (12 hours) Temp Pulse Resp BP Pulse Ox 05/14/17 08:00 97.7 F 45 L 20 96 05/14/17 07:02 97.7 F 45 L 20 136/61 96 Weight Admit Weight 175 lb Weight 175 lb I&O: 05/13/17 05/14/17 05/15/17 06:59 06:59 06:59 Intake Total 2220 2460 350 Output Total 450 750 Balance 1770 1710 350 Result Diagrams: 05/14/17 03:52 05/14/17 03:52 Phys Exam - Physical Examination Constitutional: NAD HEENT: sclera anicteric Neck: supple Respiratory: clear to auscultation bilateral Cardiovascular: RRR Gastrointestinal: soft, positive bowel sounds Musculoskeletal: no edema Neurological: moves all 4 limbs Psychiatric: normal affect Skin: no rash Dx/Plan (1) Acute renal failure Status: Acute Qualifiers: Acute renal failure type: unspecified Qualified Code(s): N17.9 - Acute kidney failure, unspecified (2) HTN (hypertension) Code(s): I10 - ESSENTIAL (PRIMARY) HYPERTENSION Status: Chronic Qualifiers: Hypertension type: essential hypertension Qualified Code(s): I10 - Essential (primary) hypertension (3) Hypothyroid Code(s): E03.9 - HYPOTHYROIDISM, UNSPECIFIED Status: Chronic (4) Metastatic renal cell carcinoma to liver Code(s): C78.7 - SECONDARY MALIG NEOPLASM OF LIVER AND INTRAHEPATIC BILE DUCT; C64.9 - MALIGNANT NEOPLASM OF UNSP KIDNEY, EXCEPT RENAL PELVIS Status: Chronic - Plan PT/OT, out of bed/ambulate * . Creatinine improving, continue IV fluids and steroids. Pt reportedly has an outpatient CT scheduled on May 18 (with followup oncology appt on may 21). Will need to clarify with oncology if they still want this CT done or if it needs to be rescheduled to until after renal function improves. Review of Systems - Review of Systems Respiratory: negative: Cough, Dry, Shortness of Breath, Hemoptysis, SOB with Excertion, Pleuritic Pain, Sputum, Wheezing Cardiovascular: negative: chest pain, palpitations, orthopnea, paroxysmal nocturnal dyspnea, edema, light headedness - Medications/Allergies Allergies/Adverse Reactions: Allergies Allergy/AdvReac Type Severity Reaction Status Date / Time No Known Drug Allergies Allergy Verified 05/09/17 12:45 Medications: Current Medications Doxazosin Mesylate (Cardura) 4 mg PO HS [facility] Last Admin: 05/13/17 22:00 Dose: 4 mg Sodium Chloride (Normal Saline 0.9%) 1,000 mls @ 125 mls/hr IV .Q8H [facility] Last Admin: 05/14/17 05:50 Dose: 1,000 mls Levothyroxine Sodium (Synthroid) 50 mcg PO 0600 [facility] Last Admin: 05/14/17 05:50 Dose: 50 mcg Pantoprazole Sodium (Protonix) 40 mg PO DAILY [facility] Last Admin: 05/14/17 08:45 Dose: 40 mg Prednisone (Prednisone) 60 mg PO QAM-WM [facility] Last Admin: 05/14/17 08:45 Dose: 60 mg Sodium Chloride (Flush - Normal Saline) 10 ml IVF Q12HR [facility] Last Admin: 05/14/17 08:46 Dose: Not Given Sodium Chloride (Flush - Normal Saline) 10 ml IVF PRN PRN PRN Reason: Saline Flush
[2017-05-14] MEDS: Doxazosin Mesylate 4 MG TAB PO SCH (20:25)
[2017-05-15] MEDS: Sodium Chloride 0.9% 1,000 ML IV SCH ×2 (04:08→18:13)
[2017-05-15 04:57] LABS: #Lymphocytes 0.6 thou/uL (1.20-3.40); #Monocytes 0.3 thou/uL (0.11-0.59); #Neutrophils 10.5 thou/uL (1.40-6.50); %Eosinophils 0.2 % (0.0-10.0); %Lymphocytes 5.1 % (21.0-51.0); %Monocytes 2.8 % (0.0-10.0); %Neutrophils 91.9 % (42.0-75.0); Anion Gap 11 mmol/L (10-20); BUN (Urea Nitrogen) 72 mg/dL (8.4-25.7); Calc. Creatinine Clearance 19 mL/min (70-130); Calcium 7.9 mg/dL (7.8-10.44); Carbon Dioxide 21 mmol/L (23-31); Chloride 115 mmol/L (98-107); Estimated GFR-MDRD 16; Glucose 108 mg/dL (83-110); Hemoglobin 9.1 g/dL (14.0-18.0); Mean Corpuscular HGB CONC 31.1 g/dL (32.0-36.0); Mean Corpuscular Hemoglobin 28.4 pg (27.0-31.0); Mean Corpuscular Volume 91.2 fl (80.0-94.0); Mean Platelet Volume 8.2 fL (7.4-10.4); Platelet Count 296 thou/uL (130-400); Potassium 3.7 mmol/L (3.5-5.1); Red Blood Cell (RBC) Count 3.19 mill/uL (4.70-6.10); Sodium 143 mmol/L (136-145); White Blood Cell (WBC) Count 11.4 thou/uL (4.8-10.8)
[2017-05-15] MEDS: Levothyroxine Sodium 50 MCG TAB PO SCH (06:09)
[2017-05-15] MEDS: predniSONE 20 MG TAB PO SCH (08:15)
--- NOTE | 2017-05-15 08:48 | PRG ---
DATE OF SERVICE: 05/15/2017 SUBJECTIVE: Mr. Hinds is a 77-year-old white male who is seen for his acute kidney injury. He is getting empiric volume repletion as well as being treated with steroids for presumed interstitial nep hritis. This is thought to be secondary to his Opdivo. Of interest, this patient has decreased p.o. intake. My concern is if the IV fluids are discontinued, may go to some degree of volume depletion again. He does not have any appetite. I did advise him to increase his p.o. intake. He will try to comply with this. The patient denies any chest pain or shortness of breath. PHYSICAL EXAMINATION: VITAL SIGNS: Blood pressure is 143/70, heart rate 46, respiratory rate 20, temperature 98, pulse ox 99%. GENERAL: Noted to be awake, alert, comfortable, not in distress. SKIN: Adequate turgor. HEENT: Pinkish conjunctivae, anicteric sclerae. NECK: No neck mass, no carotid bruits, no JVD. CHEST: No deformities. LUNGS: Clear breath sounds. No wheezing, no crackles. ABDOMEN: Bradycardic. No murmur, no gallops, no rubs. ABDOMEN: Globular, soft, nontender, no masses. EXTREMITIES: No edema, no deformities. MEDICATIONS: 05/15/2017 - Reviewed. LABORATORY: 05/15/2017 - White count 11.4, hemoglobin 9.1, sodium 143, potassium 4.7, chloride 105, carbon dioxide 21, BUN 72, creatinine 3.61, GFR 16 mL per minute, glucose 108. calcium is 7.9. ASSESSMENT AND PLAN: 1. Acute kidney injury - continue IV. The etiology being considered is that this could be an inters titial nephritis from is Opdivo. He is currently receiving prednisone and currently at 60 mg tab once daily. He is also being hydrated due to his poor p.o. intake. Renal function has slowly been impro ving. His creatinine peaked at the value of 12 and is now currently at 3.61. There is no indication for any dialytic intervention. We will continue supportive care. Please note that renal biopsy is a relative contraindication with this patient due to solid dry kidney 2. Anemia. Continue to observe. 3. Metastatic renal cancer, supportive care. 4. Decreased p.o. intake, consider liberalizing the patient's diet. Recheck basic met and CBC again in a.m.
--- NOTE | 2017-05-15 14:27 | PDOC.PN ---
- Subjective Encounter Start Date: 05/15/17 Encounter Start Time: 07:00 Pt seen for followup re: ISABELLA. Denies any complaints. - Objective Resuscitation Status: Resuscitation Status DNR:Do Not Resuscitate MAR Reviewed: Yes Vital Signs & Weight: Vital Signs (12 hours) Temp Pulse Resp BP Pulse Ox 05/15/17 08:00 98.0 F 46 L 20 98 05/15/17 07:15 98.0 F 46 L 20 143/70 H 99 Weight Admit Weight 175 lb Weight 175 lb I&O: 05/14/17 05/15/17 05/16/17 06:59 06:59 06:59 Intake Total 2460 3800 Output Total 750 1800 Balance 1710 1999 Result Diagrams: 05/15/17 04:12 05/15/17 04:12 Phys Exam - Physical Examination Constitutional: NAD HEENT: moist MMs Neck: supple Respiratory: clear to auscultation bilateral Cardiovascular: RRR Gastrointestinal: soft Neurological: moves all 4 limbs Psychiatric: normal affect Skin: no rash Dx/Plan (1) Acute renal failure Status: Acute Qualifiers: Acute renal failure type: unspecified Qualified Code(s): N17.9 - Acute kidney failure, unspecified (2) HTN (hypertension) Code(s): I10 - ESSENTIAL (PRIMARY) HYPERTENSION Status: Chronic Qualifiers: Hypertension type: essential hypertension Qualified Code(s): I10 - Essential (primary) hypertension (3) Hypothyroid Code(s): E03.9 - HYPOTHYROIDISM, UNSPECIFIED Status: Chronic (4) Metastatic renal cell carcinoma to liver Code(s): C78.7 - SECONDARY MALIG NEOPLASM OF LIVER AND INTRAHEPATIC BILE DUCT; C64.9 - MALIGNANT NEOPLASM OF UNSP KIDNEY, EXCEPT RENAL PELVIS Status: Chronic - Plan * . Continue steroids, monitor creatinine and lytes. Encouraged oral intake. Encouraged him to stay active. Review of Systems - Review of Systems Respiratory: negative: Cough, Dry, Shortness of Breath, Hemoptysis, SOB with Excertion, Pleuritic Pain, Sputum, Wheezing Cardiovascular: negative: chest pain, palpitations, orthopnea, paroxysmal nocturnal dyspnea, edema, light headedness Gastrointestinal: negative: Nausea, Vomiting, Abdominal Pain, Diarrhea, Constipation, Melena, Hematochezia - Medications/Allergies Allergies/Adverse Reactions: Allergies Allergy/AdvReac Type Severity Reaction Status Date / Time No Known Drug Allergies Allergy Verified 05/09/17 12:45 Medications: Current Medications Doxazosin Mesylate (Cardura) 4 mg PO HS [facility] Last Admin: 05/14/17 20:25 Dose: 4 mg Sodium Chloride (Normal Saline 0.9%) 1,000 mls @ 125 mls/hr IV .Q8H [facility] Last Admin: 05/15/17 04:08 Dose: 1,000 mls Levothyroxine Sodium (Synthroid) 50 mcg PO 0600 [facility] Last Admin: 05/15/17 06:09 Dose: 50 mcg Pantoprazole Sodium (Protonix) 40 mg PO DAILY [facility] Last Admin: 05/15/17 08:16 Dose: 40 mg Prednisone (Prednisone) 60 mg PO QAM-WM [facility] Last Admin: 05/15/17 08:15 Dose: 60 mg Sodium Chloride (Flush - Normal Saline) 10 ml IVF Q12HR [facility] Last Admin: 05/15/17 08:16 Dose: Not Given Sodium Chloride (Flush - Normal Saline) 10 ml IVF PRN PRN PRN Reason: Saline Flush
[2017-05-15] MEDS: Doxazosin Mesylate 4 MG TAB PO SCH (21:21)
[2017-05-16 06:42] LABS: Anion Gap 9 mmol/L (10-20); BUN (Urea Nitrogen) 61 mg/dL (8.4-25.7); Calc. Creatinine Clearance 26 mL/min (70-130); Calcium 7.7 mg/dL (7.8-10.44); Carbon Dioxide 22 mmol/L (23-31); Chloride 116 mmol/L (98-107); Estimated GFR-MDRD 23; Glucose 99 mg/dL (83-110); Potassium 3.7 mmol/L (3.5-5.1); Sodium 143 mmol/L (136-145)
[2017-05-16 06:46] LABS: #Lymphocytes 0.6 thou/uL (1.20-3.40); #Monocytes 0.3 thou/uL (0.11-0.59); #Neutrophils 10.3 thou/uL (1.40-6.50); %Basophils 0.2 % (0.0-1.0); %Eosinophils 0.2 % (0.0-10.0); %Lymphocytes 5.3 % (21.0-51.0); %Monocytes 2.7 % (0.0-10.0); %Neutrophils 91.7 % (42.0-75.0); Hemoglobin 8.6 g/dL (14.0-18.0); Mean Corpuscular HGB CONC 31.4 g/dL (32.0-36.0); Mean Corpuscular Hemoglobin 28.8 pg (27.0-31.0); Mean Corpuscular Volume 91.9 fl (80.0-94.0); Mean Platelet Volume 8.4 fL (7.4-10.4); Platelet Count 270 thou/uL (130-400); RBC Distribution Width 14.1 % (11.5-14.5); Red Blood Cell (RBC) Count 2.97 mill/uL (4.70-6.10); White Blood Cell (WBC) Count 11.3 thou/uL (4.8-10.8)
[2017-05-16] MEDS: Sodium Chloride 0.9% 1,000 ML IV SCH ×4 (06:53→15:43)
[2017-05-16] MEDS: Levothyroxine Sodium 50 MCG TAB PO SCH (06:54)
--- NOTE | 2017-05-16 07:41 | PDOC.PN ---
- Subjective Encounter Start Date: 05/16/17 Encounter Start Time: 07:20 Subjective: NO NEW COMPLAINTS - Objective Resuscitation Status: Resuscitation Status DNR:Do Not Resuscitate MAR Reviewed: Yes Vital Signs & Weight: Vital Signs (12 hours) Temp Pulse Resp BP Pulse Ox 05/16/17 07:37 98.2 F 44 L 16 141/65 H 96 05/15/17 20:00 98.2 F 51 L 18 98 Weight Admit Weight 175 lb Weight 175 lb I&O: 05/15/17 05/16/17 05/17/17 06:59 06:59 06:59 Intake Total 3800 400 Output Total 1800 1200 Balance 2000 -800 Result Diagrams: 05/16/17 05:19 05/16/17 05:19 Phys Exam - Physical Examination Constitutional: NAD HEENT: PERRLA, moist MMs, sclera anicteric Neck: supple, full ROM Respiratory: no wheezing, no rhonchi, clear to auscultation bilateral Cardiovascular: RRR Gastrointestinal: soft, no distention Musculoskeletal: no edema Neurological: non-focal, moves all 4 limbs Psychiatric: normal affect, A&O x 3 Skin: no rash Dx/Plan (1) Acute renal failure Status: Acute Qualifiers: Acute renal failure type: unspecified Qualified Code(s): N17.9 - Acute kidney failure, unspecified (2) HTN (hypertension) Code(s): I10 - ESSENTIAL (PRIMARY) HYPERTENSION Status: Chronic Qualifiers: Hypertension type: essential hypertension Qualified Code(s): I10 - Essential (primary) hypertension (3) Hypothyroid Code(s): E03.9 - HYPOTHYROIDISM, UNSPECIFIED Status: Chronic (4) Metastatic renal cell carcinoma to liver Code(s): C78.7 - SECONDARY MALIG NEOPLASM OF LIVER AND INTRAHEPATIC BILE DUCT; C64.9 - MALIGNANT NEOPLASM OF UNSP KIDNEY, EXCEPT RENAL PELVIS Status: Chronic - Plan cont current plan of care ISABELAL improved, continue to encourage p.o. intake and ambulation. -: D/C to home once cleared by Renal. * .
[2017-05-16] MEDS: predniSONE 20 MG TAB PO SCH (08:25)
--- NOTE | 2017-05-16 08:34 | PQF ---
CLINICAL DOCUMENTATION IMPROVEMENT CLARIFICATION FORM: ICD-10 Updated PLEASE DO AN ADDENDUM TO THE PROGRESS NOTE WITH ANY DOCUMENTATION UPDATES OR ADDITIONS AND CARRY THROUGH TO DC SUMMARY. THANK YOU. Date: 05/16/17 ATTN: DR. ASHLEY CEE Please exercise your independent, professional judgment in responding to the clarification form. Clinical indicators are provided on the bottom of this form for your review Please check appropriate box(s): [ xx ] Protein Calorie Malnutrition: [ ] Mild [x ] Moderate [ ] Severe [ ] Other Malnutrition (please specify) __ [ ] Underweight without malnutrition [ ] Other diagnosis [ ] Unable to determine CLINICAL INDICATORS - SIGNS / SYMPTOMS / LABS BMI: 21.9 NUTRITION ASSESSMENT 05/10/17: PT HAS POOR PO INTAKE. HE REPORTS "LOUSY" APPETITE FOR YEARS. ...THINKS HE HAS LOST AT LEAST 10 LBS IN PAST 1 MONTH. ...HE REPORTS MONTHS OF WORSENING DYSPHAGIA, FEELS LIKE FOOD GETS CAUGHT IN HIS THROAT. NEPHROLOGY PN 1/2: THIS PT HAS DECREASED PO INTAKE. HE DOES NOT HAVE ANY APPETITE. ATTENDING PN 1/2 & 3: ENCOURAGE ORAL INTAKE; CONTINUE TO ENCOURAGE PO INTAKE RISK FACTORS: CHANGE IN APPETITE RENAL CELL CARCINOMA (CHEMO CURRENTLY ON HOLD) TREATMENT: NUTRITION ASSESSMENT (05/10) SPEECH CONSULT FOR DYSPHAGIA (05/15) NUTRITION SUPPLEMENT (NEPRO TID, 05/10 - PRESENT) THANK YOU! Patricia (This form is maintained as a part of the permanent medical record) 2014 [employer]. All Rights Reserved Patricia Reina, RN, BSN [email or web address] Office: [phone] [facility]
--- NOTE | 2017-05-16 09:45 | PRG ---
DATE OF SERVICE: 05/16/2017 RENAL MEDICINE SUBJECTIVE: Mr. Hinds is a 77-year-old white male, who was seen for his acute kidney injury. The exact etiology is unclear, but this could be related to interstitial nephritis from his Opdivo as wel l as superimposed prerenal azotemia. He is receiving prednisone and IV hydration. He is tolerating IV hydration, still with decreased p.o. intake. I encouraged the patient to increase his dietary int charity. I have changed his diet to regular diet. He denies any chest pain or shortness of breath. OBJECTIVE: VITAL SIGNS: Blood pressure 141/65, heart rate 44, respiratory rate 16, temperature 98.2, pulse ox 9 6%. GENERAL EXAM: Noted to be awake, sitting comfortable, not in distress. SKIN: Adequate turgor. HEENT: He has a slightly pale conjunctivae. Anicteric sclerae. NECK: No neck mass, no carotid bruits, no JVD. CHEST: No deformities. LUNGS: Clear breath sounds. No wheezing, no crackles. ABDOMEN: Bradycardic. No murmur, no gallops, no rubs. ABDOMEN: Globular, soft, nontender. EXTREMITIES: No edema, no deformities. MEDICATIONS: Medications of 05/16/2017 reviewed. LABORATORY DATA: Laboratories of 05/16/2017, white count 11.3, hemoglobin 8.6. Sodium 143, potassiu m 3.7, chloride 106, carbon dioxide 22, BUN 61, creatinine 2.65. GFR 23 mL per minute. Calcium 7.7. ASSESSMENT AND PLAN: 1. Acute kidney injury - acute interstitial nephritis versus prerenal azotemia. Improving numbers. Continuing current management. Continue prednisone at 60 mg tablet once a day. Once there is a tracie r resolution of the renal failure, we will start tapering prednisone. Continue IV hydration, normal saline at 125 mL per hour. My concern is decreased p.o. intake. I have encouraged the patient to in crease his p.o. intake. He was also changed to a regular diet. 2. Anemia - continue to observe. 3. Metastatic renal cancer. Supportive care. Oncology is following. Recheck basic metabolic panel and CBC in a.m.
[2017-05-16] MEDS: Doxazosin Mesylate 4 MG TAB PO SCH (20:13)
[2017-05-17] MEDS: Sodium Chloride 0.9% 1,000 ML IV SCH ×2 (00:49→09:42)
[2017-05-17 04:36] LABS: #Lymphocytes 0.6 thou/uL (1.20-3.40); #Monocytes 0.4 thou/uL (0.11-0.59); #Neutrophils 10.4 thou/uL (1.40-6.50); %Eosinophils 0.4 % (0.0-10.0); %Lymphocytes 5.6 % (21.0-51.0); %Monocytes 3.4 % (0.0-10.0); %Neutrophils 90.5 % (42.0-75.0); Hemoglobin 9.2 g/dL (14.0-18.0); Mean Corpuscular HGB CONC 31.4 g/dL (32.0-36.0); Mean Corpuscular Hemoglobin 28.6 pg (27.0-31.0); Mean Corpuscular Volume 91.4 fl (80.0-94.0); Mean Platelet Volume 8.8 fL (7.4-10.4); Platelet Count 238 thou/uL (130-400); RBC Distribution Width 14.2 % (11.5-14.5); White Blood Cell (WBC) Count 11.5 thou/uL (4.8-10.8)
[2017-05-17 04:53] LABS: Anion Gap 11 mmol/L (10-20); BUN (Urea Nitrogen) 51 mg/dL (8.4-25.7); Calc. Creatinine Clearance 31 mL/min (70-130); Calcium 7.6 mg/dL (7.8-10.44); Carbon Dioxide 21 mmol/L (23-31); Chloride 116 mmol/L (98-107); Estimated GFR-MDRD 29; Glucose 98 mg/dL (83-110); Potassium 3.6 mmol/L (3.5-5.1); Sodium 144 mmol/L (136-145)
[2017-05-17] MEDS: Levothyroxine Sodium 50 MCG TAB PO SCH (05:21)
[2017-05-17 08:05] VITALS: BP 145/72; TEMP 97.8
[2017-05-17] MEDS: predniSONE 20 MG TAB PO SCH (08:33)
--- NOTE | 2017-05-17 08:57 | PRG ---
DATE OF SERVICE: 05/17/2017 SUBJECTIVE: Mr. Hinds is a 77-year-old white male who was seen for his acute kidney injury. A pre sumptive diagnosis of prerenal azotemia/chronic interstitial nephritis was made. He received steroid s, prednisone as well as empiric volume repletion. Creatinine has improved over time. Most recent c reatinine is now noted at 2.2. This has been slowly improving from a peak of 12. No other complaint s today. His appetite is actually improved. He is being evaluated by Speech Therapy and no issues r egarding swallowing was noted. He feels that the hospital food he is not liking. He denies any chest pain or shortness of breath. OBJECTIVE: VITAL SIGNS: Blood pressure 145/72, heart rate 49, respiratory rate 14, temperature 97.8, pulse ox 9 9%. GENERAL: Noted to be awake, alert, comfortable, not in distress. SKIN: Adequate turgor. HEENT: Pinkish conjunctivae, anicteric sclerae. NECK: No neck mass, no carotid bruits, no JVD. CHEST: No deformities. LUNGS: Clear breath sounds, no wheezing, no crackles. HEART: Normal sinus rhythm. No murmur, no gallops, no rubs. ABDOMEN: Globular, soft, nontender, no masses. EXTREMITIES: No edema, no deformities. MEDICATIONS: Of 05/17/2017 was reviewed. LABORATORY DATA: Of 05/17/2017, white count 11.5, hemoglobin 9.2, sodium 144, potassium 3.6, chlorid e 106, carbon dioxide 21, BUN 51, creatinine 2.2, glucose 98, calcium 7.6. ASSESSMENT AND PLAN: 1. Acute kidney injury - prerenal azotemia versus acute interstitial nephritis - improving renal fun ction. The patient has received a course of prednisone. The plan is to currently taper off the pred nisone. Agree with IV volume repletion. Since his p.o. intake is much improved, we can consider dis charging the patient. We will follow up this patient in 1-2 [facility]. We will hold off any PAM inhibitors, ARB or any diuretics. 2. Metastatic renal cancer - followed by his oncologist. Agree with discharge.
[2017-05-17 10:52] LABS: Bilirubin Negative (Negative); Blood, Urine Small (Negative); Glucose, Urine (Dipstick) Negative (Negative); Leukocyte Large (Negative); Nitrite Negative (Negative); Protein, Urine (Dipstick) Trace mg/dL (Neg-Trace); Urobilinogen 0.2 mg/dL (0.2-1.0); pH, Urine 5.5 (5.0-9.0)
[2017-05-17 10:57] LABS: Clarity HAZY (Clear)
[2017-05-17 11:03] LABS: Bacteria/HPF 3+ HPF (None Seen); Hyaline Casts/LPF NONE SEEN LPF (0-3 Hyaline); Squamous Epithelial 0-3 HPF (0-3)
--- NOTE | 2017-05-17 13:51 | PDOC.PN ---
- Subjective Encounter Start Date: 05/17/17 Encounter Start Time: 13:49 Subjective: eager to go home,denies any dysuria/hematuria/fever/chills/AP - Objective Resuscitation Status: Resuscitation Status DNR:Do Not Resuscitate MAR Reviewed: Yes Vital Signs & Weight: Vital Signs (12 hours) Temp Pulse Resp BP Pulse Ox 05/17/17 07:40 97.8 F 49 L 14 99 05/17/17 07:00 97.8 F 49 L 14 145/72 H 99 Weight Admit Weight 175 lb Weight 175 lb I&O: 05/16/17 05/17/17 05/18/17 06:59 06:59 06:59 Intake Total 400 100 Output Total 1200 2000 400 Balance -800 -2000 -300 Result Diagrams: 05/17/17 03:49 05/17/17 03:49 Additional Labs: Laboratory Tests 05/09/17 05/09/17 05/10/17 12:56 12:56 05:14 Hgb 8.9 L Creatinine 12.13 H 11.08 H 05/10/17 05/11/17 05/11/17 05:14 05:13 05:13 Hgb 8.7 L 8.8 L Creatinine 9.68 H 05/12/17 05/12/17 05/13/17 04:26 04:26 05:51 Hgb 10.3 L Creatinine 8.10 H 6.20 H 05/13/17 05/14/17 05/14/17 05:51 03:52 03:52 Hgb 8.5 L 8.9 L Creatinine 4.77 H 05/15/17 05/15/17 05/16/17 04:12 04:12 05:19 Hgb 9.1 L Creatinine 3.61 H 2.65 H 05/16/17 05/17/17 05/17/17 05:19 03:49 03:49 Hgb 8.6 L 9.2 L Creatinine 2.20 H Phys Exam - Physical Examination Constitutional: NAD HEENT: PERRLA, moist MMs, sclera anicteric, oral pharynx no lesions Neck: no nodes, no JVD, supple, full ROM Respiratory: no wheezing, no rales, no rhonchi, clear to auscultation bilateral Cardiovascular: RRR, no significant murmur, no rub, gallop Gastrointestinal: soft, non-tender, no distention, positive bowel sounds Musculoskeletal: no edema, pulses present Neurological: non-focal, normal sensation, moves all 4 limbs Psychiatric: normal affect, A&O x 3 Skin: no rash Dx/Plan (1) UTI (urinary tract infection) Status: Acute (2) Acute renal failure Status: Acute Qualifiers: Acute renal failure type: unspecified Qualified Code(s): N17.9 - Acute kidney failure, unspecified (3) HTN (hypertension) Code(s): I10 - ESSENTIAL (PRIMARY) HYPERTENSION Status: Chronic Qualifiers: Hypertension type: essential hypertension Qualified Code(s): I10 - Essential (primary) hypertension (4) Hypothyroid Code(s): E03.9 - HYPOTHYROIDISM, UNSPECIFIED Status: Chronic (5) Metastatic renal cell carcinoma to liver Code(s): C78.7 - SECONDARY MALIG NEOPLASM OF LIVER AND INTRAHEPATIC BILE DUCT; C64.9 - MALIGNANT NEOPLASM OF UNSP KIDNEY, EXCEPT RENAL PELVIS Status: Chronic - Plan plan discussed w/ family, DVT proph w/SCDs UA repeated .no Cx sent from first sample.Suggests UTI.start PO ABx -: will follow Cx resuilts w . made aware. -: Cr improving.Cleared by DC from Nephrology & Oncology -: OK to go home.ABx scrpit provided.asymptomatic for now * . Review of Systems - Review of Systems Constitutional: negative: fever, chills, sweats, weakness, malaise, other ENT: negative: Ear Pain, Ear Discharge, Nose Pain, Nose Discharge, Nose Congestion, Mouth Pain, Mouth Swelling, Throat Pain, Throat Swelling, Other Respiratory: negative: Cough, Dry, Shortness of Breath, Hemoptysis, SOB with Excertion, Pleuritic Pain, Sputum, Wheezing Cardiovascular: negative: chest pain, palpitations, orthopnea, paroxysmal nocturnal dyspnea, edema, light headedness, other Gastrointestinal: negative: Nausea, Vomiting, Abdominal Pain, Diarrhea, Constipation, Melena, Hematochezia, Other Genitourinary: negative: Dysuria, Frequency, Incontinence, Hematuria, Retention , Other Musculoskeletal: negative: Neck Pain, Shoulder Pain, Arm Pain, Back Pain, Hand Pain, Leg Pain, Foot Pain, Other Neurological: negative: Weakness, Numbness, Incoordination, Change in Speech, Confusion, Seizures, Other - Medications/Allergies Allergies/Adverse Reactions: Allergies Allergy/AdvReac Type Severity Reaction Status Date / Time No Known Drug Allergies Allergy Verified 05/09/17 12:45 Medications: Current Medications Doxazosin Mesylate (Cardura) 4 mg PO HS [facility] Last Admin: 05/16/17 20:13 Dose: 4 mg Sodium Chloride (Normal Saline 0.9%) 1,000 mls @ 125 mls/hr IV .Q8H [facility] Last Admin: 05/17/17 09:42 Dose: 1,000 mls Levothyroxine Sodium (Synthroid) 50 mcg PO 0600 [facility] Last Admin: 05/17/17 05:21 Dose: 50 mcg Pantoprazole Sodium (Protonix) 40 mg PO DAILY [facility] Last Admin: 05/17/17 08:34 Dose: 40 mg Prednisone (Prednisone) 20 mg PO QAM-WM [facility] Sodium Chloride (Flush - Normal Saline) 10 ml IVF Q12HR [facility] Last Admin: 05/17/17 08:34 Dose: Not Given Sodium Chloride (Flush - Normal Saline) 10 ml IVF PRN PRN PRN Reason: Saline Flush
--- NOTE | 2017-05-17 14:51 | DIS ---
DATE OF ADMISSION: 05/09/2017 DATE OF DISCHARGE: 05/17/2017 CONDITION AT THE TIME OF DISCHARGE: Stable and improved. PRIMARY CARE PHYSICIAN: Dr. Noel Tello DISCHARGE DIAGNOSES: 1. Urinary tract infection. 2. Acute kidney insufficiency, either secondary to acute tubular necrosis versus along with prerenal azotemia. 3. Hypertension. 4. Hypothyroidism. 5. 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 DISCHARGE MEDICATIONS: New medications, levofloxacin 500 mg p.o. daily for 7 days. Resume the [facility] home medications; potassium chloride 8 mEq, doxazosin 4 mg daily, levothyroxine 50 mcg daily, om eprazole 40 mg daily, Lasix 80 mg daily, and prednisone 3 tablets p.o. daily and spironolactone b.i.d . The patient is instructed to hold his Lasix for now. The patient is instructed to hold his potass ium supplementation until he is off of Lasix. DISCHARGE FOLLOWUP: 1. With primary care physician. 2. Nephrology, Dr. Hicks. 3. Oncology, Dr. Castillo. CONSULTATIONS IN-HOUSE: 1. Oncology. 2. Nephrology. PROCEDURES IN THE HOSPITAL: Include a chest x-ray. HISTORY OF PRESENTING ILLNESS: Mr. Hinds is a 77-year-old pleasant male with past medica l history of metastatic renal carcinoma, status post right nephrectomy for renal cell carcinoma 16 ye ars ago with recurrent liver mets 2 years ago, on immunotherapy as well as history of peptic ulcer di sease who presented as a direct admit by Dr. Castillo with profound listlessness and fatigue for 2 mon ths' duration and finding of creatinine of 12 on blood work as an outpatient. He was admitted with a cute renal insufficiency of unclear etiology. He was otherwise hemodynamically stable. Please see a dmission history and physical for further details. Nephrology was consulted as well as Oncology who also was consulted. HOSPITAL COURSE: Dr. Hicks started the patient on IV fluids and the consensus was that most likely his renal failure is acute tubular necrosis versus prerenal azotemia. His creatinine improved significa ntly with IV fluids. On the day of discharge, his creatinine has improved from 12.13 to 2.20 with im provement of his GFR from 4 to 29. Otherwise, he remained hemodynamically stable throughout the rest of his hospitalization. His UA did suggest a urine infection, but unfortunately it was not sent for a culture. A UA was repeated today which once again showed multiple bacteria, WBCs, leukocyte esterase. Because of this finding, he wa s empirically started on oral levofloxacin. 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 Discharge plan was discussed with t he patient and his were very eager to go home and do not want to wait for the urine culture resu lts overnight. Instructions were provided for close followup. He was seen and examined prior to dis charge. Please see hospitalist progress note from today's date for further details including the fac e-to-face interaction.
[2017-05-18] MEDS ORDERED: predniSONE 20 MG TAB PO SCH (08:00)
== END 2017-05-17 12:08 | disposition home or self-care (01) | DRG 683 ==
LOC: ONC 11:55
PROVIDERS: ADMIT Internal Medicine Hematology & Oncology; ATTEND Internal Medicine
DX: N17.0 Acute kidney failure with tubular necrosis (principal); E44.0 Moderate protein-calorie malnutrition; C78.7 Secondary malignant neoplasm of liver and intrahepatic bile duct; E87.5 Hyperkalemia; R13.10 Dysphagia, unspecified; N39.0 Urinary tract infection, site not specified; D64.9 Anemia, unspecified; E11.9 Type 2 diabetes mellitus without complications; E07.9 Disorder of thyroid, unspecified; E78.5 Hyperlipidemia, unspecified; R00.1 Bradycardia, unspecified; I10 Essential (primary) hypertension; N03.9 Chronic nephritic syndrome with unspecified morphologic changes; Z85.528 Personal history of other malignant neoplasm of kidney; Z68.21 Body mass index [BMI] 21.0-21.9, adult; Z92.21 Personal history of antineoplastic chemotherapy; Z90.5 Acquired absence of kidney; Z90.79 Acquired absence of other genital organ(s); Z87.11 Personal history of peptic ulcer disease; Z82.49 Family history of ischemic heart disease and other diseases of the circulatory system; Z80.0 Family history of malignant neoplasm of digestive organs; Z66 Do not resuscitate
CPT/HCPCS: 36415; 71020; 76775; 80048; 80053; 81001; 81003; 81015; 82248; 82570; 83615; 84100; 84300; 84550; 85025; 87077; 87086; 90471; 90682; 93005; 93010; A4216; G0008; G8996-GN-CI; G8997-GN-CI; J7506; Q2036

== ENCOUNTER 2017-07-23 07:21 | Outpatient (CLI) | payer MEDICARE ==
--- NOTE | 2017-07-23 09:12 | CT ---
CT ABDOMEN AND PELVIS WITHOUT CONTRAST: Date: 07/23/17 HISTORY: Renal cancer. 12 month tumor assessment. FINDINGS: Lung bases are clear. No pericardial effusion. Right hepatic liver mass is very similar in size to the comparison examination. It has not increased in size. Prior right nephrectomy. The left kidney is mildly edematous relative to the comparison examination with mild edema in the per irenal space. There is thickening of the urinary bladder circumferentially. New midline lower pelvis surgical scar. Prostate is enlarged with likely prostatic malignancy extending into the seminal vesic les bilaterally. No left-sided renal obstructing calculus. There are multiple sclerotic foci in the skeleton, right ilium, right femoral head, left superior pub ic ramus, and intertrochanteric portion of left femur. Small retroperitoneal and perirectal lymph nodes are similar. The previously noted enhancing mass in the spleen is not well defined on this noncontrast examination. The scattered small right middle lobe and lower lobe pulmonary nodules are unchanged. No new masses o r pulmonary nodules. IMPRESSION: 1. No interval change in size in the right hepatic mass. 2. New left-sided renomegaly with mild edema in the perirenal space. No evidence of obstructive urop athy. 3. Marked enlargement of the prostate with concern for possible prostatic malignancy extending to th e seminal vesicles. Recommend correlation with patient's PSA level. Prostate MRI may be beneficial. 4. No significant change in size of the basilar pulmonary nodules. 5. Multiple sclerotic foci in the skeleton can be seen with osseous metastatic disease and is simila r to the comparison examinations. No worsening. 6. New surgical scar midline lower abdomen. There is also mild marked thickening of the urinary blad iesha. These two may be related. If there is no recent surgical history of urinary bladder, cystitis is a possibility. POS: KEVON
== END 2017-07-23 07:22 | disposition home or self-care (01) ==
LOC: SCSCT 07:21
PROVIDERS: ATTEND Internal Medicine Hematology & Oncology
DX: C64.9 Malignant neoplasm of unspecified kidney, except renal pelvis (principal); R16.0 Hepatomegaly, not elsewhere classified; N28.89 Other specified disorders of kidney and ureter; N40.0 Benign prostatic hyperplasia without lower urinary tract symptoms; R19.8 Other specified symptoms and signs involving the digestive system and abdomen; M89.9 Disorder of bone, unspecified; L90.5 Scar conditions and fibrosis of skin
CPT/HCPCS: 74176